=== PATIENT | female | born 1995 | race Two or more races ===

== ENCOUNTER 2023-11-07 11:17 | Emergency (ER) | payer OTHER ==
[2023-11-07 11:21] VITALS: TEMP 98.3; BMI 25.0
[2023-11-07 12:21] LABS: BASO % 0.3 % (0-2.0); EOS % 0.5 % (0-4.5); HEMATOCRIT 40.3 % (32.4-45.2); HEMOGLOBIN 13.5 GM/dL (10.7-15.3); LYMPH % 25.6 % (8-40); MCH 32.9 pg (25.7-33.7); MCHC 33.6 g/dl (32.0-36.0); MEAN CELL VOLUME 97.8 fl (80-96); MEAN PLT VOLUME 7.9 fl (7.5-11.1); MONO % 4.9 % (3.8-10.2); NEUT % 68.7 % (42.8-82.8); PLATELET COUNT 404 10^3/uL (134-434); RBC 4.12 M/mm3 (3.60-5.2); RDW 12.7 % (11.6-15.6); WHITE BLOOD COUNT 9.1 K/mm3 (4.0-10.0)
[2023-11-07 12:23] LABS: URINE APPEARANCE CLEAR; URINE BILIRUBIN NEGATIVE (NEGATIVE); URINE COLOR YELLOW; URINE GLUCOSE (UA) NEGATIVE (NEGATIVE); URINE KETONE TRACE (NEGATIVE); URINE LEUK ESTERASE NEGATIVE (NEGATIVE); URINE NITRITE NEGATIVE (NEGATIVE); URINE PROTEIN NEGATIVE (NEGATIVE); URINE UROBILINOGEN 0.2 mg/dL (0.2-1.0)
[2023-11-07 12:40] LABS: POTASSIUM 4.2 mmol/L (3.5-5.1)
[2023-11-07 12:41] LABS: CALCIUM 9.7 mg/dL (8.5-10.1)
[2023-11-07 12:42] LABS: BLOOD UREA NITROGEN 7.8 mg/dL (7-18)
[2023-11-07 12:45] LABS: CREATININE 0.7 mg/dL (0.55-1.3)
[2023-11-07 15:30] VITALS: BP 110/61; PULSE 79; RESP 16
[2023-11-07] MEDS: METHOTREXATE SODIUM/PF 25 MG/ML VIAL IM ONE (19:59)
== END 2023-11-07 20:05 | disposition home or self-care (01) ==
LOC: JER 11:17
DX: O00.202 Left ovarian pregnancy without intrauterine pregnancy (principal); O26.891 Other specified pregnancy related conditions, first trimester; R10.9 Unspecified abdominal pain; Z3A.01 Less than 8 weeks gestation of pregnancy
CPT/HCPCS: 36415; 76817-TC; 80048; 81003; 84702; 84703; 85025; 86850; 86900; 86901; 99284-25

== ENCOUNTER 2023-11-08 14:02 | Emergency (ER) | payer OTHER ==
[2023-11-08 14:34] VITALS: BP 109/70; PULSE 78; RESP 16; TEMP 97.7; BMI 22.9
[2023-11-08] MEDS: METHOTREXATE SODIUM/PF 25 MG/ML VIAL IM ONE (21:04)
== END 2023-11-08 21:29 | disposition home or self-care (01) ==
LOC: JER 14:02
DX: O00.202 Left ovarian pregnancy without intrauterine pregnancy (principal); O20.9 Hemorrhage in early pregnancy, unspecified; Z3A.01 Less than 8 weeks gestation of pregnancy
CPT/HCPCS: 36415; 76830-TC; 84702; 86850; 86900; 86901; 99284-25; J9260

== ENCOUNTER 2023-11-12 12:19 | Emergency (ER) | payer OTHER ==
[2023-11-12 12:27] VITALS: BP 112/50; PULSE 84; RESP 18; TEMP 98.1; BMI 22.9
[2023-11-12] MEDS ORDERED: ACETAMINOPHEN INJECTION 100 ML IVPB ONE (13:16)
[2023-11-12] MEDS ORDERED: KETOROLAC TROMETHAMINE 30 MG/1 ML VIAL ONE (13:17)
[2023-11-12] MEDS ORDERED: ONDANSETRON 4 MG/2 ML VIAL ONE (13:17)
[2023-11-12 13:31] LABS: BASO % 0.4 % (0-2.0); EOS % 0.5 % (0-4.5); HEMATOCRIT 39.2 % (32.4-45.2); HEMOGLOBIN 13.2 GM/dL (10.7-15.3); LYMPH % 22.6 % (8-40); MCH 32.7 pg (25.7-33.7); MCHC 33.7 g/dl (32.0-36.0); MEAN CELL VOLUME 97.1 fl (80-96); MONO % 4.3 % (3.8-10.2); NEUT % 72.2 % (42.8-82.8); PLATELET COUNT 406 10^3/uL (134-434); RBC 4.04 M/mm3 (3.60-5.2); RDW 12.6 % (11.6-15.6); WHITE BLOOD COUNT 11.5 K/mm3 (4.0-10.0)
[2023-11-12] MEDS: SODIUM CHLORIDE 0.9% 500 ML INFUS.BAG IV ONE (13:42)
[2023-11-12] MEDS: ONDANSETRON 4 MG/2 ML VIAL IVPUSH ONE (13:43)
[2023-11-12] MEDS: KETOROLAC TROMETHAMINE 30 MG/1 ML VIAL IVPUSH ONE (13:43)
[2023-11-12] MEDS: ACETAMINOPHEN 1000 MG/100 ML BAG IVPB ONE (13:43)
[2023-11-12 13:59] LABS: POTASSIUM 4.4 mmol/L (3.5-5.1)
[2023-11-12 14:00] LABS: CALCIUM 8.7 mg/dL (8.5-10.1)
[2023-11-12 14:01] LABS: BLOOD UREA NITROGEN 8.6 mg/dL (7-18)
[2023-11-12 14:04] LABS: CREATININE 0.5 mg/dL (0.55-1.3)
[2023-11-12] MEDS: METHOTREXATE SODIUM/PF 25 MG/ML VIAL IM ONE (16:36)
== END 2023-11-12 18:14 | disposition home or self-care (01) ==
LOC: JER 12:19
PROC: 3E033NZ Introduction of Analgesics, Hypnotics, Sedatives into Peripheral Vein, Percutaneous Approach (ICD-10-PCS; principal; 2023-11-12)
PROC: 3E0333Z Introduction of Anti-inflammatory into Peripheral Vein, Percutaneous Approach (ICD-10-PCS; 2023-11-12)
PROC: 3E033GC Introduction of Other Therapeutic Substance into Peripheral Vein, Percutaneous Approach (ICD-10-PCS; 2023-11-12)
PROC: 3E033GC Introduction of Other Therapeutic Substance into Peripheral Vein, Percutaneous Approach (ICD-10-PCS; 2023-11-12)
DX: O00.202 Left ovarian pregnancy without intrauterine pregnancy (principal); O21.9 Vomiting of pregnancy, unspecified; Z3A.01 Less than 8 weeks gestation of pregnancy
CPT/HCPCS: 36415; 76830-TC; 80048; 84702; 85025; 99284-25; J0131; J9260

== ENCOUNTER 2023-11-18 22:51 | Inpatient (IN) | payer OTHER ==
[2023-11-18 22:58] VITALS: BMI 22.8
[2023-11-19] MEDS ORDERED: ACETAMINOPHEN INJECTION 100 ML IVPB ONE (01:17)
[2023-11-19 01:23] LABS: BASO % 0.4 % (0-2.0); EOS % 0.8 % (0-4.5); HEMATOCRIT 35.8 % (32.4-45.2); HEMOGLOBIN 12.4 GM/dL (10.7-15.3); LYMPH % 33.3 % (8-40); MCH 33.6 pg (25.7-33.7); MCHC 34.7 g/dl (32.0-36.0); MEAN CELL VOLUME 96.9 fl (80-96); MEAN PLT VOLUME 8.4 fl (7.5-11.1); MONO % 5.7 % (3.8-10.2); NEUT % 59.8 % (42.8-82.8); PLATELET COUNT 345 10^3/uL (134-434); RDW 12.7 % (11.6-15.6); WHITE BLOOD COUNT 11.9 K/mm3 (4.0-10.0)
[2023-11-19] MEDS: ACETAMINOPHEN 1000 MG/100 ML BAG IVPB ONE (01:30)
[2023-11-19 01:42] LABS: INR 1.02 (0.83-1.09); PROTHROMBIN TIME (PATIENT) 11.8 SEC (9.7-13.0)
[2023-11-19 01:44] LABS: ACTIVATED PTT 31.7 SECONDS (25.2-36.5)
[2023-11-19 01:45] LABS: POTASSIUM 4.3 mmol/L (3.5-5.1)
[2023-11-19 01:47] LABS: CALCIUM 9.3 mg/dL (8.5-10.1)
[2023-11-19 01:48] LABS: ALBUMIN 3.7 g/dl (3.4-5.0); BLOOD UREA NITROGEN 15.5 mg/dL (7-18)
[2023-11-19 01:49] LABS: EPI CELLS 9 /uL (0-25.1); HYALINE CASTS 0 /uL (0-3.1); PH,URINE 8.5 (5.0-8.0); URINE APPEARANCE CLOUDY; URINE BACTERIA 78 /uL (0-1359); URINE BILIRUBIN NEGATIVE (NEGATIVE); URINE COLOR YELLOW; URINE GLUCOSE (UA) NEGATIVE (NEGATIVE); URINE KETONE NEGATIVE (NEGATIVE); URINE LEUK ESTERASE NEGATIVE (NEGATIVE); URINE NITRITE NEGATIVE (NEGATIVE); URINE PROTEIN NEGATIVE (NEGATIVE); URINE RBC 495 /uL (0-23.9); URINE WBC 6 /uL (0-25.8)
[2023-11-19 01:51] LABS: CREATININE 0.6 mg/dL (0.55-1.3)
[2023-11-19 01:52] LABS: BILIRUBIN,TOTAL 0.3 mg/dL (0.2-1); TOT PROT 6.7 g/dl (6.4-8.2)
[2023-11-19] MEDS: morphine CARPU-JECT 2 MG/1 ML DISP.SYRIN IVPUSH ONE (02:54)
[2023-11-19] MEDS ORDERED: ACETAMINOPHEN 1000 MG/100 ML BAG IVPB PRN (08:22)
[2023-11-19] MEDS: DEXTROSE 5%-LACTATED RINGERS 1,000 ML IV SCH (10:15)
[2023-11-20 08:19] LABS: BASO % 0.2 % (0-2.0); EOS % 1.6 % (0-4.5); HEMATOCRIT 36.9 % (32.4-45.2); HEMOGLOBIN 12.3 GM/dL (10.7-15.3); LYMPH % 30.8 % (8-40); MCH 32.8 pg (25.7-33.7); MCHC 33.4 g/dl (32.0-36.0); MEAN CELL VOLUME 98.1 fl (80-96); MEAN PLT VOLUME 8.7 fl (7.5-11.1); MONO % 5.6 % (3.8-10.2); NEUT % 61.8 % (42.8-82.8); PLATELET COUNT 335 10^3/uL (134-434); RBC 3.76 M/mm3 (3.60-5.2); RDW 12.9 % (11.6-15.6); WHITE BLOOD COUNT 7.4 K/mm3 (4.0-10.0)
[2023-11-20 10:37] VITALS: RESP 16
[2023-11-20 14:33] VITALS: BP 99/65; PULSE 82; TEMP 98.1
== END 2023-11-20 14:00 | disposition home or self-care (01) | DRG 566 ==
LOC: JER 22:51 → JERBED 11-19 06:31 → OBSVTOIN 11-19 07:09 → J6S 11-19 09:16
PROVIDERS: ADMIT Obstetrics & Gynecology; ATTEND Obstetrics & Gynecology
DX: O00.202 Left ovarian pregnancy without intrauterine pregnancy (principal); R10.2 Pelvic and perineal pain
CPT/HCPCS: 36415; 76817-TC; 80053; 81003; 84702; 85025; 85610; 85730; 87086; 99285-25; G0378; J0131

== ENCOUNTER 2023-11-25 10:10 | Emergency (ER) | payer OTHER ==
[2023-11-25 10:22] VITALS: BP 102/64; PULSE 72; RESP 17; TEMP 97.8; BMI 22.8
[2023-11-25] MEDS ORDERED: IBUPROFEN 600 MG TABLET (FP) PO ONE (10:46)
== END 2023-11-25 12:58 | disposition home or self-care (01) ==
LOC: JERFT 10:10
DX: O00.202 Left ovarian pregnancy without intrauterine pregnancy (principal); O02.81 Inappropriate change in quantitative human chorionic gonadotropin (hCG) in early pregnancy
CPT/HCPCS: 36415; 84702; 99283-25

== ENCOUNTER 2023-12-01 00:36 | Emergency (ER) | payer OTHER ==
[2023-12-01 01:07] VITALS: BMI 22.8
[2023-12-01 01:45] LABS: POTASSIUM 5.8 mmol/L (3.5-5.1)
[2023-12-01 01:47] LABS: BLOOD UREA NITROGEN 10.2 mg/dL (7-18); CALCIUM 9.7 mg/dL (8.5-10.1)
[2023-12-01 01:48] LABS: ALBUMIN 4.2 g/dl (3.4-5.0)
[2023-12-01 01:50] LABS: CREATININE 0.8 mg/dL (0.55-1.3)
[2023-12-01 01:52] LABS: BILIRUBIN,TOTAL 0.4 mg/dL (0.2-1); TOT PROT 7.9 g/dl (6.4-8.2)
[2023-12-01 02:05] LABS: BASO % 0.9 % (0-2.0); HEMATOCRIT 41.4 % (32.4-45.2); HEMOGLOBIN 13.8 GM/dL (10.7-15.3); LYMPH % 38.9 % (8-40); MCHC 33.4 g/dl (32.0-36.0); MEAN CELL VOLUME 98.8 fl (80-96); MEAN PLT VOLUME 9.3 fl (7.5-11.1); MONO % 4.9 % (3.8-10.2); NEUT % 54.3 % (42.8-82.8); PLATELET COUNT 425 10^3/uL (134-434); RBC 4.19 M/mm3 (3.60-5.2); RDW 12.9 % (11.6-15.6); WHITE BLOOD COUNT 10.4 K/mm3 (4.0-10.0)
[2023-12-01 02:42] LABS: EPI CELLS >36 /uL (0-25.1); HYALINE CASTS 5 /uL (0-3.1); PH,URINE 6.5 (5.0-8.0); URINE APPEARANCE TURBID; URINE BILIRUBIN NEGATIVE (NEGATIVE); URINE COLOR ORANGE; URINE GLUCOSE (UA) NEGATIVE (NEGATIVE); URINE KETONE TRACE (NEGATIVE); URINE LEUK ESTERASE TRACE (NEGATIVE); URINE NITRITE NEGATIVE (NEGATIVE); URINE PROTEIN 1+ (NEGATIVE); URINE RBC 2245 /uL (0-23.9); URINE WBC 37 /uL (0-25.8)
[2023-12-01] MEDS ORDERED: morphine SULFATE 4 MG/ML VIAL ONE ×2 (02:57→04:16)
[2023-12-01] MEDS ORDERED: ACETAMINOPHEN INJECTION 100 ML IVPB ONE (02:57)
[2023-12-01] MEDS ORDERED: ONDANSETRON 4 MG/2 ML VIAL ONE (02:57)
[2023-12-01] MEDS: morphine CARPU-JECT 4 MG/1 ML DISP.SYRIN IVPUSH ONE (03:03)
[2023-12-01] MEDS: ACETAMINOPHEN 1000 MG/100 ML BAG IVPB ONE (03:03)
[2023-12-01] MEDS: ONDANSETRON 4 MG/2 ML VIAL IVPUSH ONE (03:03)
[2023-12-01 03:39] LABS: URINE BACTERIA 1035.5 /uL (0-1359)
[2023-12-01 05:25] VITALS: BP 101/67; PULSE 86; RESP 18; TEMP 97.7
== END 2023-12-01 05:55 | disposition home or self-care (01) ==
LOC: JER 00:36
PROC: 3E033NZ Introduction of Analgesics, Hypnotics, Sedatives into Peripheral Vein, Percutaneous Approach (ICD-10-PCS; principal; 2023-12-01)
PROC: 3E033GC Introduction of Other Therapeutic Substance into Peripheral Vein, Percutaneous Approach (ICD-10-PCS; 2023-12-01)
DX: O00.202 Left ovarian pregnancy without intrauterine pregnancy (principal)
CPT/HCPCS: 36415; 76801-TC; 80053; 81003; 84702; 85025; 86850; 86900; 86901; 87086; 99284-25; J0131

== ENCOUNTER 2023-12-08 18:36 | Emergency (ER) | payer OTHER ==
[2023-12-08 18:50] VITALS: BP 113/73; PULSE 84; RESP 18; TEMP 97; BMI 23.4
== END 2023-12-08 23:04 | disposition home or self-care (01) ==
LOC: JERFT 18:36
DX: O26.899 Other specified pregnancy related conditions, unspecified trimester (principal); R10.30 Lower abdominal pain, unspecified; O00.202 Left ovarian pregnancy without intrauterine pregnancy; O99.891 Other specified diseases and conditions complicating pregnancy; H00.011 Hordeolum externum right upper eyelid; Z3A.00 Weeks of gestation of pregnancy not specified
CPT/HCPCS: 36415; 76817-TC; 84702; 99284-25

== ENCOUNTER 2024-09-09 18:58 | Emergency (ER) | payer OTHER ==
[2024-09-09 19:10] VITALS: BP 121/80; PULSE 78; RESP 20; TEMP 98.7; BMI 23.7
[2024-09-09 20:24] LABS: HEMATOCRIT 37.8 % (32.4-45.2); HEMOGLOBIN 12.3 GM/dL (10.7-15.3); MCH 31.7 pg (25.7-33.7); MCHC 32.4 g/dl (32.0-36.0); MEAN PLT VOLUME 8.7 fl (7.5-11.1); PLATELET COUNT 431 10^3/uL (134-434); RBC 3.86 M/mm3 (3.60-5.2)
[2024-09-09 20:35] LABS: HCG,QUALITATIVE URINE Positive
[2024-09-09 20:43] LABS: PH,URINE 5.5 (5.0-8.0); URINE APPEARANCE CLEAR; URINE BILIRUBIN NEGATIVE (NEGATIVE); URINE COLOR YELLOW; URINE GLUCOSE (UA) NEGATIVE (NEGATIVE); URINE KETONE 1+ (NEGATIVE); URINE LEUK ESTERASE NEGATIVE (NEGATIVE); URINE NITRITE NEGATIVE (NEGATIVE); URINE PROTEIN NEGATIVE (NEGATIVE); URINE UROBILINOGEN 0.2 mg/dL (0.2-1.0)
[2024-09-09 20:46] LABS: POTASSIUM 3.6 mmol/L (3.5-5.1)
[2024-09-09 20:48] LABS: BLOOD UREA NITROGEN 9.4 mg/dL (7-18)
[2024-09-09 20:52] LABS: CREATININE 0.8 mg/dL (0.55-1.3)
== END 2024-09-09 21:49 | disposition home or self-care (01) ==
LOC: JER 18:58
DX: O26.891 Other specified pregnancy related conditions, first trimester (principal); R10.2 Pelvic and perineal pain; Z3A.01 Less than 8 weeks gestation of pregnancy; Z20.822 Contact with and (suspected) exposure to COVID-19
CPT/HCPCS: 0241U-QW; 36415; 76830-TC; 80048; 81003; 84702; 84703; 85027; 85730; 86850; 86900; 86901; 99284-25